=== PATIENT | male | born 1985 | race Caucasian/White ===

== ENCOUNTER 2021-07-10 17:28 | Emergency (ER) | payer OTHER | END 2021-07-10 19:19 | disposition home or self-care (01) | LOC: ER1 17:28 | DX: S00.83XA Contusion of other part of head, initial encounter (principal); M79.601 Pain in right arm; R07.9 Chest pain, unspecified; V49.40XA Driver injured in collision with unspecified motor vehicles in traffic accident, initial encounter; Y92.410 Unspecified street and highway as the place of occurrence of the external cause | CPT/HCPCS: 70140; 71101; 99284 ==

== ENCOUNTER 2022-03-17 03:57 | Emergency (ER) | payer OTHER, MEDICAID ==
[2022-03-17] MEDS ORDERED: PERCOCET 5/325 T1 EA PO (05:10)
[2022-03-17] MEDS ORDERED: KEFLEX CAP 250250 MG PO (05:10)
== END 2022-03-17 05:45 | disposition home or self-care (01) ==
LOC: ER1 03:57
DX: S81.842A Puncture wound with foreign body, left lower leg, initial encounter (principal); W34.00XA Accidental discharge from unspecified firearms or gun, initial encounter
CPT/HCPCS: 73590; 90471; 90715; 96374; 99283; J0690